=== PATIENT | male | born 2000 | race Caucasian/White ===

== ENCOUNTER 2022-07-14 17:57 | Inpatient (IN) | payer SELFPAY ==
[2022-07-14] MEDS ORDERED: ONDANSETRON 4 MG/2 ML VIAL IVPUSH ONE (20:08)
[2022-07-14] MEDS ORDERED: chlordiazePOXIDE HCL 25 MG CAPSULE PO ONE (20:08)
[2022-07-14] MEDS ORDERED: diazePAM CARPU-JECT 10 MG/2 ML DISP.SYRIN IVPUSH ONE (20:08)
[2022-07-14] MEDS ORDERED: FOLIC ACID INJECTION - 1 MG, THIAMINE HCL 100 MG, MULTIVIT INJECTION ADULT 10 ML in SOD... IVPB ONE (21:00)
[2022-07-14] MEDS ORDERED: chlordiazePOXIDE HCL 25 MG CAPSULE ONE (21:27)
[2022-07-14] MEDS ORDERED: ONDANSETRON 4 MG/2 ML VIAL ONE (21:27)
[2022-07-14] MEDS ORDERED: diazePAM CARPU-JECT 10 MG/2 ML DISP.SYRIN ONE (21:27)
[2022-07-14 21:42] LABS: BASO % 0.4 % (0-2.0); EOS % 0.1 % (0-4.5); HEMOGLOBIN 14.7 GM/dL (11.7-16.9); LYMPH % 12.3 % (8-40); MCHC 34.2 g/dl (32.0-35.9); MEAN CELL VOLUME 93.5 fl (80-96); MEAN PLT VOLUME 8.6 fl (7.5-11.1); MONO % 7.6 % (3.8-10.2); NEUT % 79.6 % (42.8-82.8); PLATELET COUNT 196 10^3/uL (134-434); RDW 13.3 % (11.9-15.9); WHITE BLOOD COUNT 8.4 K/mm3 (4.0-10.0)
[2022-07-14 22:07] LABS: ALBUMIN 4.4 g/dl (3.4-5.0); BLOOD UREA NITROGEN 6.8 mg/dL (7-18)
[2022-07-14 22:10] LABS: CREATININE 0.7 mg/dL (0.55-1.3)
[2022-07-14 22:11] LABS: BILIRUBIN,TOTAL 1.5 mg/dL (0.2-1); TOT PROT 7.3 g/dl (6.4-8.2)
[2022-07-15] MEDS ORDERED: chlordiazePOXIDE HCL 25 MG CAPSULE PO PRN (00:43)
[2022-07-15] MEDS ORDERED: LORazepam 1 MG TABLET ONE ×2 (02:12→12:03)
[2022-07-15] MEDS ORDERED: chlordiazePOXIDE HCL 25 MG CAPSULE PO SCH (05:00)
[2022-07-15] MEDS ORDERED: LORazepam 1 MG TABLET PO PRN (05:46)
[2022-07-15] MEDS: LORazepam 1 MG TABLET PO SCH ×4 (06:49→23:22)
[2022-07-15 07:11] LABS: BASO % 0.6 % (0-2.0); EOS % 0.7 % (0-4.5); HEMATOCRIT 43.8 % (35.4-49); HEMOGLOBIN 14.5 GM/dL (11.7-16.9); LYMPH % 20.6 % (8-40); MCH 31.3 pg (25.7-33.7); MCHC 33.2 g/dl (32.0-35.9); MEAN CELL VOLUME 94.4 fl (80-96); MEAN PLT VOLUME 9.2 fl (7.5-11.1); MONO % 8.3 % (3.8-10.2); NEUT % 69.8 % (42.8-82.8); PLATELET COUNT 183 10^3/uL (134-434); RBC 4.64 M/mm3 (4.00-5.60); RDW 13.6 % (11.9-15.9); WHITE BLOOD COUNT 5.7 K/mm3 (4.0-10.0)
[2022-07-15 07:12] LABS: ALBUMIN 3.8 g/dl (3.4-5.0); BLOOD UREA NITROGEN 6.9 mg/dL (7-18); MAGNESIUM 2.2 mg/dL (1.8-2.4)
[2022-07-15 07:15] LABS: CREATININE 0.6 mg/dL (0.55-1.3); PHOSPHOROUS 3.7 mg/dL (2.5-4.9)
[2022-07-15 07:16] LABS: TOT PROT 6.4 g/dl (6.4-8.2)
[2022-07-15] MEDS ORDERED: THIAMINE HCL 200 MG/2 ML VIAL IVPB ONE (07:49)
[2022-07-15] MEDS ORDERED: POTASSIUM CHLORIDE ORAL LIQUID 20 MEQ/15 ML PO ONE (07:54)
[2022-07-15] MEDS ORDERED: POTASSIUM CHLORIDE ORAL LIQUID 20 MEQ/15 ML ONE (09:49)
[2022-07-15] MEDS ORDERED: ENOXAPARIN NA (PORCINE) 40 MG/0.4 ML DISP.SYRIN SQ ONE (09:49)
[2022-07-15] MEDS ORDERED: THIAMINE HCL 200 MG/2 ML VIAL ONE (09:49)
[2022-07-15] MEDS ORDERED: THIAMINE HCL 100 MG TABLET (FP) ONE (09:49)
[2022-07-15] MEDS: ENOXAPARIN NA (PORCINE) 40 MG/0.4 ML DISP.SYRIN SQ SCH (10:06)
[2022-07-15] MEDS: THIAMINE HCL 100 MG TABLET (FP) PO SCH (10:06)
[2022-07-15 16:54] VITALS: BMI 25.1
[2022-07-15 21:50] LABS: HIV INTERPRETATION NEGATIVE (NEGATIVE)
[2022-07-16] MEDS ORDERED: chlordiazePOXIDE HCL 25 MG CAPSULE PO SCH (05:00)
[2022-07-16] MEDS: LORazepam 1 MG TABLET PO SCH ×4 (06:00→23:21)
[2022-07-16 07:34] LABS: BASO % 0.4 % (0-2.0); EOS % 1.7 % (0-4.5); HEMATOCRIT 43.7 % (35.4-49); HEMOGLOBIN 14.8 GM/dL (11.7-16.9); MCHC 33.9 g/dl (32.0-35.9); MEAN CELL VOLUME 94.5 fl (80-96); MEAN PLT VOLUME 9.4 fl (7.5-11.1); MONO % 8.7 % (3.8-10.2); NEUT % 68.2 % (42.8-82.8); PLATELET COUNT 142 10^3/uL (134-434); RBC 4.62 M/mm3 (4.00-5.60); RDW 13.3 % (11.9-15.9); WHITE BLOOD COUNT 5.1 K/mm3 (4.0-10.0)
[2022-07-16 08:06] LABS: CALCIUM 8.8 mg/dL (8.5-10.1)
[2022-07-16 08:07] LABS: ALBUMIN 3.8 g/dl (3.4-5.0)
[2022-07-16 08:09] LABS: PHOSPHOROUS 3.6 mg/dL (2.5-4.9)
[2022-07-16 08:10] LABS: CREATININE 0.7 mg/dL (0.55-1.3)
[2022-07-16 08:11] LABS: BILIRUBIN,TOTAL 1.3 mg/dL (0.2-1); TOT PROT 6.5 g/dl (6.4-8.2)
[2022-07-16] MEDS: ENOXAPARIN NA (PORCINE) 40 MG/0.4 ML DISP.SYRIN SQ SCH (10:04)
[2022-07-16] MEDS: THIAMINE HCL 100 MG TABLET (FP) PO SCH (10:06)
[2022-07-16 10:29] VITALS: RESP 18
[2022-07-17] MEDS ORDERED: LORazepam 0.5 MG TABLET PO PRN
[2022-07-17] MEDS ORDERED: chlordiazePOXIDE HCL 10 MG CAPSULE PO PRN
[2022-07-17] MEDS ORDERED: chlordiazePOXIDE HCL 10 MG CAPSULE PO SCH (05:00)
[2022-07-17] MEDS: LORazepam 0.5 MG TABLET PO SCH ×3 (05:46→17:16)
[2022-07-17 08:24] LABS: BASO % 0.4 % (0-2.0); HEMATOCRIT 44.2 % (35.4-49); HEMOGLOBIN 14.7 GM/dL (11.7-16.9); LYMPH % 19.3 % (8-40); MCH 31.4 pg (25.7-33.7); MCHC 33.3 g/dl (32.0-35.9); MEAN CELL VOLUME 94.5 fl (80-96); MEAN PLT VOLUME 9.4 fl (7.5-11.1); MONO % 9.7 % (3.8-10.2); NEUT % 68.6 % (42.8-82.8); PLATELET COUNT 144 10^3/uL (134-434); RBC 4.68 M/mm3 (4.00-5.60); RDW 13.1 % (11.9-15.9); WHITE BLOOD COUNT 5.6 K/mm3 (4.0-10.0)
[2022-07-17 08:44] LABS: CALCIUM 8.7 mg/dL (8.5-10.1)
[2022-07-17 08:45] LABS: ALBUMIN 3.8 g/dl (3.4-5.0); BLOOD UREA NITROGEN 10.2 mg/dL (7-18); MAGNESIUM 2.1 mg/dL (1.8-2.4)
[2022-07-17 08:47] LABS: CREATININE 0.7 mg/dL (0.55-1.3)
[2022-07-17 08:48] LABS: PHOSPHOROUS 4.2 mg/dL (2.5-4.9)
[2022-07-17 08:49] LABS: TOT PROT 6.6 g/dl (6.4-8.2)
[2022-07-17] MEDS: THIAMINE HCL 100 MG TABLET (FP) PO SCH (10:07)
[2022-07-17] MEDS: ENOXAPARIN NA (PORCINE) 40 MG/0.4 ML DISP.SYRIN SQ SCH (10:08)
[2022-07-17 10:14] VITALS: TEMP 97.7
[2022-07-17 15:14] VITALS: BP 139/83; PULSE 69
[2022-07-18] MEDS ORDERED: chlordiazePOXIDE HCL 10 MG CAPSULE PO SCH (05:00)
[2022-07-18] MEDS ORDERED: LORazepam 0.5 MG TABLET PO ONE (05:00)
[2022-07-19] MEDS ORDERED: chlordiazePOXIDE HCL 10 MG CAPSULE PO ONE (05:00)
== END 2022-07-17 18:23 | disposition home or self-care (01) | DRG 775 ==
LOC: JER 17:57 → JERBED 22:42 → J4W 07-15 16:41
PROVIDERS: ADMIT Internal Medicine; ATTEND Internal Medicine
DX: F10.230 Alcohol dependence with withdrawal, uncomplicated (principal); R07.9 Chest pain, unspecified; R74.01 Elevation of levels of liver transaminase levels; E87.6 Hypokalemia; R30.0 Dysuria; R94.31 Abnormal electrocardiogram [ECG] [EKG]; F17.210 Nicotine dependence, cigarettes, uncomplicated
CPT/HCPCS: 36415; 71046-TC-FY; 74177-TC; 80053; 80307; 83690; 83735; 84100; 84484; 85025; 87086; 87389; 87491; 87591; 87661; 93005; 93010; 99285-25; C9803-CS; Q9967; U0003; U0005

== ENCOUNTER 2024-05-09 07:22 | Emergency (ER) | payer SELFPAY ==
[2024-05-09 07:32] VITALS: BMI 27.4
[2024-05-09 08:27] LABS: BASO % 0.5 % (0-2.0); EOS % 0.2 % (0-4.5); HEMATOCRIT 47.2 % (35.4-49); HEMOGLOBIN 16.1 GM/dL (11.7-16.9); LYMPH % 22.4 % (8-40); MCH 31.7 pg (25.7-33.7); MCHC 34.2 g/dl (32.0-35.9); MEAN CELL VOLUME 92.8 fl (80-96); MEAN PLT VOLUME 8.8 fl (7.5-11.1); MONO % 4.8 % (3.8-10.2); NEUT % 72.1 % (42.8-82.8); PLATELET COUNT 270 10^3/uL (134-434); RBC 5.09 M/mm3 (4.00-5.60); RDW 13.1 % (11.9-15.9)
[2024-05-09] MEDS ORDERED: ACETAMINOPHEN INJECTION 100 ML IVPB ONE (08:33)
[2024-05-09] MEDS: SODIUM CHLORIDE 1,000 ML IV STA (08:36)
[2024-05-09] MEDS: ACETAMINOPHEN 1000 MG/100 ML BAG IVPB ONE (08:37)
[2024-05-09 08:41] LABS: PH,URINE 5.5 (5.0-8.0); URINE APPEARANCE CLEAR; URINE BILIRUBIN NEGATIVE (NEGATIVE); URINE COLOR YELLOW; URINE GLUCOSE (UA) NEGATIVE (NEGATIVE); URINE KETONE TRACE (NEGATIVE); URINE LEUK ESTERASE NEGATIVE (NEGATIVE); URINE NITRITE NEGATIVE (NEGATIVE); URINE PROTEIN TRACE (NEGATIVE); URINE UROBILINOGEN 0.2 mg/dL (0.2-1.0)
[2024-05-09 08:41] LABS: CALCIUM 9.1 mg/dL (8.5-10.1)
[2024-05-09 08:42] LABS: BLOOD UREA NITROGEN 10.7 mg/dL (7-18)
[2024-05-09 08:45] LABS: CREATININE 0.8 mg/dL (0.55-1.3)
[2024-05-09 08:47] LABS: BILIRUBIN,TOTAL 1.3 mg/dL (0.2-1); TOT PROT 7.6 g/dl (6.4-8.2)
[2024-05-09 12:09] VITALS: BP 104/57; PULSE 82; RESP 20; TEMP 97.6
== END 2024-05-09 12:03 | disposition home or self-care (01) ==
LOC: JER 07:22
PROC: 3E033NZ Introduction of Analgesics, Hypnotics, Sedatives into Peripheral Vein, Percutaneous Approach (ICD-10-PCS; principal; 2024-05-09)
PROC: 3E0337Z Introduction of Electrolytic and Water Balance Substance into Peripheral Vein, Percutaneous Approach (ICD-10-PCS; 2024-05-09)
DX: R10.12 Left upper quadrant pain (principal)
CPT/HCPCS: 36415; 74177-TC; 80053; 81003; 85025; 87086; 99285-25; J0131; Q9967

== ENCOUNTER 2024-05-21 10:30 | Inpatient (IN) | payer OTHER ==
[2024-05-21 11:01] LABS: BASO % 0.3 % (0-2.0); HEMATOCRIT 44.1 % (35.4-49); HEMOGLOBIN 15.7 GM/dL (11.7-16.9); LYMPH % 8.1 % (8-40); MCH 32.6 pg (25.7-33.7); MCHC 35.5 g/dl (32.0-35.9); MEAN CELL VOLUME 91.7 fl (80-96); MONO % 13.5 % (3.8-10.2); NEUT % 78.1 % (42.8-82.8); PLATELET COUNT 133 10^3/uL (134-434); RBC 4.81 M/mm3 (4.00-5.60); WHITE BLOOD COUNT 10.3 K/mm3 (4.0-10.0)
[2024-05-21 11:24] LABS: CHLORIDE 99 mmol/L (98-107); POTASSIUM 3.2 mmol/L (3.5-5.1); SODIUM 135 mmol/L (136-145)
[2024-05-21 11:31] LABS: ALBUMIN 4.8 g/dl (3.4-5.0); ANION GAP 13 mmol/L (4-13); BLOOD UREA NITROGEN 7.1 mg/dL (7-18); CALCIUM 9.2 mg/dL (8.5-10.1); CO2 22 mmol/L (21-32); GLUCOSE,RANDOM 121 mg/dL (74-106); SGOT/AST 446 U/L (15-37); SGPT/ALT 564 U/L (13-61)
[2024-05-21 11:33] LABS: BILIRUBIN,TOTAL 1.5 mg/dL (0.2-1)
[2024-05-21 11:42] LABS: ALK PHOS 128 U/L (45-117)
[2024-05-21] MEDS ORDERED: DIPHTH,PERTUSS(ACELL),TET 0.5 ML DISP.SYRIN IM ONE ×2 (12:54→13:02)
[2024-05-21] MEDS: DIPHTH,PERTUSS(ACELL),TET 0.5 ML DISP.SYRIN IM ONE (12:57)
[2024-05-21 13:14] LABS: INR 0.98 (0.83-1.09); PROTHROMBIN TIME (PATIENT) 11.1 SEC (9.7-13.0)
[2024-05-21 13:17] LABS: ACTIVATED PTT 27.8 SECONDS (25.2-36.5)
[2024-05-21 13:24] LABS: POTASSIUM 3.2 mmol/L (3.5-5.1)
[2024-05-21 13:25] LABS: CALCIUM 9.4 mg/dL (8.5-10.1)
[2024-05-21 13:27] LABS: ALBUMIN 4.8 g/dl (3.4-5.0); BLOOD UREA NITROGEN 6.1 mg/dL (7-18)
[2024-05-21 13:30] LABS: BILIRUBIN,TOTAL 1.6 mg/dL (0.2-1); TOT PROT 8.1 g/dl (6.4-8.2)
[2024-05-21 14:48] LABS: OPIATES, URI NEGATIVE (NEGATIVE); URINE BARBITURATES NEGATIVE (NEGATIVE)
[2024-05-21 14:49] LABS: COCAINE, UR NEGATIVE (NEGATIVE); METHADONE, UR NEGATIVE (NEGATIVE); PHENCYCLIDINE,URINE NEGATIVE (NEGATIVE); URINE AMPHETAMINES NEGATIVE (NEGATIVE); URINE BENZODIAZEPINES NEGATIVE (NEGATIVE)
[2024-05-21] MEDS: ACETAMINOPHEN 325 MG TABLET (FP) PO ONE (15:34)
[2024-05-21] MEDS: SODIUM CHLORIDE 0.9% 500 ML INFUS.BAG IV ONE (15:34)
[2024-05-21] MEDS: LACTATED RINGERS SOLUTION 1000 ML INFUS.BAG IV ONE (17:01)
[2024-05-21] MEDS ORDERED: LORazepam 1 MG TABLET PO PRN (23:28)
[2024-05-21 23:35] LABS: MAGNESIUM 2.2 mg/dL (1.8-2.4)
[2024-05-21 23:36] LABS: MAGNESIUM 2.1 mg/dL (1.8-2.4)
[2024-05-22] MEDS ORDERED: POTASSIUM CHLORIDE ORAL LIQUID 20 MEQ/15 ML ONE (02:05)
[2024-05-22] MEDS ORDERED: KCL 10 MEQ IVPB 30 MEQ/300 ML INFUS.BAG IVPB ONE (02:05)
[2024-05-22] MEDS: FOLIC ACID INJECTION - 1 MG, THIAMINE HCL 100 MG, MULTIVIT INJECTION ADULT 10 ML in SOD... IVPB ONE (02:24)
[2024-05-22] MEDS: POTASSIUM CHLORIDE ORAL LIQUID 20 MEQ/15 ML PO ONE (02:24)
[2024-05-22] MEDS: KCL 10 MEQ IVPB 10 MEQ/100 ML INFUS.BAG IVPB SCH (02:24)
[2024-05-22] MEDS ORDERED: LORazepam 1 MG TABLET ONE ×2 (04:31→10:59)
[2024-05-22] MEDS: LORazepam 1 MG TABLET PO SCH (04:37)
[2024-05-22 06:44] LABS: BASO % 0.4 % (0-2.0); EOS % 0.5 % (0-4.5); HEMATOCRIT 39.3 % (35.4-49); HEMOGLOBIN 13.6 GM/dL (11.7-16.9); LYMPH % 17.7 % (8-40); MCH 32.3 pg (25.7-33.7); MCHC 34.6 g/dl (32.0-35.9); MEAN CELL VOLUME 93.3 fl (80-96); MEAN PLT VOLUME 9.3 fl (7.5-11.1); MONO % 13.1 % (3.8-10.2); NEUT % 68.3 % (42.8-82.8); PLATELET COUNT 123 10^3/uL (134-434); RBC 4.21 M/mm3 (4.00-5.60); RDW 13.1 % (11.9-15.9); WHITE BLOOD COUNT 6.7 K/mm3 (4.0-10.0)
[2024-05-22 06:46] LABS: POTASSIUM 3.8 mmol/L (3.5-5.1)
[2024-05-22 06:49] LABS: CALCIUM 8.3 mg/dL (8.5-10.1)
[2024-05-22 06:50] LABS: BLOOD UREA NITROGEN 6.6 mg/dL (7-18); MAGNESIUM 2.2 mg/dL (1.8-2.4)
[2024-05-22 06:53] LABS: CREATININE 0.7 mg/dL (0.55-1.3); INR 1.01 (0.83-1.09); PHOSPHOROUS 2.8 mg/dL (2.5-4.9); PROTHROMBIN TIME (PATIENT) 11.4 SEC (9.7-13.0)
[2024-05-22 06:54] LABS: BILIRUBIN,TOTAL 1.9 mg/dL (0.2-1); TOT PROT 6.4 g/dl (6.4-8.2)
[2024-05-22 06:55] LABS: ALBUMIN 3.7 g/dl (3.4-5.0)
[2024-05-22] MEDS: FOLIC ACID 1 MG TABLET (FP) PO SCH (10:00)
[2024-05-22] MEDS: THIAMINE 100 MG TABLET PO SCH (10:00)
[2024-05-22] MEDS: NICOTINE 14 MG/24 HOURS TOPICAL PATCH TD SCH (10:01)
[2024-05-22] MEDS: ENOXAPARIN NA (PORCINE) 40 MG/0.4 ML DISP.SYRIN SQ SCH (10:05)
[2024-05-22 13:23] LABS: PH,URINE 6.5 (5.0-8.0); URINE APPEARANCE CLEAR; URINE BILIRUBIN NEGATIVE (NEGATIVE); URINE COLOR DK YELLOW; URINE GLUCOSE (UA) NEGATIVE (NEGATIVE); URINE KETONE NEGATIVE (NEGATIVE); URINE LEUK ESTERASE NEGATIVE (NEGATIVE); URINE NITRITE NEGATIVE (NEGATIVE); URINE PROTEIN TRACE (NEGATIVE)
[2024-05-22 18:11] VITALS: BMI 21.7
[2024-05-22] MEDS ORDERED: TRIMETHOBENZAMIDE HCL 200MG/2ML INJ IM PRN (20:47)
[2024-05-23] MEDS ORDERED: LORazepam 0.5 MG TABLET PO PRN
[2024-05-23] MEDS: LORazepam 1 MG TABLET PO SCH (05:46)
[2024-05-23] MEDS: OLANZapine 10 MG TABLET PO SCH (13:18)
[2024-05-23] MEDS: ACETAMINOPHEN 500 MG TABLET (FP) PO PRN (18:14)
[2024-05-24] MEDS: LORazepam 0.5 MG TABLET PO SCH (05:45)
[2024-05-24 09:40] LABS: POTASSIUM 3.9 mmol/L (3.5-5.1)
[2024-05-24 09:41] LABS: CALCIUM 8.7 mg/dL (8.5-10.1)
[2024-05-24 09:42] LABS: ALBUMIN 3.6 g/dl (3.4-5.0); BLOOD UREA NITROGEN 17.5 mg/dL (7-18)
[2024-05-24 09:44] LABS: BILIRUBIN,DIRECT 0.3 mg/dL (0.0-0.2)
[2024-05-24 09:45] LABS: CREATININE 0.7 mg/dL (0.55-1.3)
[2024-05-24 09:46] LABS: TOT PROT 6.5 g/dl (6.4-8.2)
[2024-05-24 09:47] LABS: BILIRUBIN,TOTAL 0.9 mg/dL (0.2-1)
[2024-05-25] MEDS: LORazepam 0.5 MG TABLET PO ONE (05:58)
[2024-05-25 09:57] LABS: HEMATOCRIT 44.6 % (35.4-49); HEMOGLOBIN 15.3 GM/dL (11.7-16.9); MCH 32.2 pg (25.7-33.7); MCHC 34.2 g/dl (32.0-35.9); MEAN PLT VOLUME 8.9 fl (7.5-11.1); PLATELET COUNT 173 10^3/uL (134-434); RBC 4.74 M/mm3 (4.00-5.60); RDW 13.4 % (11.9-15.9); WHITE BLOOD COUNT 5.1 K/mm3 (4.0-10.0)
[2024-05-25 11:10] LABS: POTASSIUM 4.5 mmol/L (3.5-5.1)
[2024-05-25 11:13] LABS: ALBUMIN 4.1 g/dl (3.4-5.0); CALCIUM 9.6 mg/dL (8.5-10.1); MAGNESIUM 2.4 mg/dL (1.8-2.4)
[2024-05-25 11:16] LABS: CREATININE 0.7 mg/dL (0.55-1.3); PHOSPHOROUS 3.1 mg/dL (2.5-4.9)
[2024-05-25 11:18] LABS: BILIRUBIN,TOTAL 1.3 mg/dL (0.2-1)
[2024-05-26 08:47] LABS: HEMATOCRIT 44.2 % (35.4-49); HEMOGLOBIN 15.2 GM/dL (11.7-16.9); MCH 32.1 pg (25.7-33.7); MCHC 34.3 g/dl (32.0-35.9); MEAN CELL VOLUME 93.4 fl (80-96); MEAN PLT VOLUME 9.1 fl (7.5-11.1); PLATELET COUNT 197 10^3/uL (134-434); RBC 4.73 M/mm3 (4.00-5.60); RDW 13.5 % (11.9-15.9); WHITE BLOOD COUNT 4.4 K/mm3 (4.0-10.0)
[2024-05-26 09:22] LABS: POTASSIUM 4.4 mmol/L (3.5-5.1)
[2024-05-26 09:31] LABS: CALCIUM 9.1 mg/dL (8.5-10.1)
[2024-05-26 09:32] LABS: BLOOD UREA NITROGEN 13.2 mg/dL (7-18); MAGNESIUM 2.3 mg/dL (1.8-2.4)
[2024-05-26 09:34] LABS: BILIRUBIN,TOTAL 1.1 mg/dL (0.2-1); CREATININE 0.7 mg/dL (0.55-1.3); PHOSPHOROUS 3.1 mg/dL (2.5-4.9)
[2024-05-26 09:35] LABS: TOT PROT 6.8 g/dl (6.4-8.2)
[2024-05-27 08:45] LABS: BASO % 0.9 % (0-2.0); EOS % 2.2 % (0-4.5); HEMATOCRIT 41.2 % (35.4-49); LYMPH % 24.8 % (8-40); MCH 32.2 pg (25.7-33.7); MEAN CELL VOLUME 94.6 fl (80-96); MEAN PLT VOLUME 8.5 fl (7.5-11.1); MONO % 15.3 % (3.8-10.2); NEUT % 56.8 % (42.8-82.8); PLATELET COUNT 208 10^3/uL (134-434); RBC 4.35 M/mm3 (4.00-5.60); RDW 13.4 % (11.9-15.9); WHITE BLOOD COUNT 4.3 K/mm3 (4.0-10.0)
[2024-05-27 09:08] LABS: POTASSIUM 4.5 mmol/L (3.5-5.1)
[2024-05-27 09:20] LABS: CALCIUM 8.9 mg/dL (8.5-10.1)
[2024-05-27 09:21] LABS: ALBUMIN 3.7 g/dl (3.4-5.0)
[2024-05-27 09:24] LABS: CREATININE 0.6 mg/dL (0.55-1.3)
[2024-05-27 09:25] LABS: BILIRUBIN,TOTAL 1.1 mg/dL (0.2-1)
[2024-05-27 09:26] LABS: TOT PROT 6.3 g/dl (6.4-8.2)
[2024-05-28 08:40] VITALS: RESP 18
[2024-05-28 16:55] VITALS: BP 123/78; PULSE 91; TEMP 98.7
== END 2024-05-28 17:45 | disposition home or self-care (01) | DRG 351 ==
LOC: JER 10:30 → JERBED 17:48 → OBSVTOIN 05-22 09:51 → J6S 05-22 14:52
PROVIDERS: ADMIT Internal Medicine; ATTEND Internal Medicine
PROC: HZ2ZZZZ Detoxification Services for Substance Abuse Treatment (ICD-10-PCS; principal; 2024-05-22)
DX: T14.91XA Suicide attempt, initial encounter (principal); X78.9XXA Intentional self-harm by unspecified sharp object, initial encounter; Y93.9 Activity, unspecified; Y92.89 Other specified places as the place of occurrence of the external cause; Y99.9 Unspecified external cause status; F10.239 Alcohol dependence with withdrawal, unspecified; K70.10 Alcoholic hepatitis without ascites; F23 Brief psychotic disorder; R74.01 Elevation of levels of liver transaminase levels; E87.6 Hypokalemia
CPT/HCPCS: 36415; 70490-TC; 71045-TC-FY; 76705-TC; 80053; 80307; 81003; 82248; 83735; 84100; 85025; 85027; 85610; 85730; 86704; 86705; 86707; 86803; 87340; 87350; 87635; 90715; 93005; 93010; 99285-25; G0378